=== PATIENT | male | born 1975 | race Caucasian/White ===

== ENCOUNTER 2016-10-30 10:08 | Observation (INO) | payer BC, OTHER ==
[2016-10-30] MEDS ORDERED: SODIUM CHLORIDE 0.9% 1,000 ML IV STA ×2 (10:10)
--- NOTE | 2016-10-30 10:17 | ED ---
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 Per bystanders she was noted to become jimenez and pale and almost passed out. This was in an EMS office. He is placed on a monitor immediately was found to be bradycardic with a rate in the 40s he did have occasional PACs. He denies chest pain fevers chills over chest pain. He was given 300 mL bolus of IV fluids and route and does feel improved at this time. This is never happened to him before he has no prior history of cardiac arrhythmia syncope he did eat breakfast this morning his blood glucose was adequate. It was 126 on Accu-Chek. He denied taking any medication. MD Complaint: almost passed out - Related Data Home Medications Medication Instructions Recorded Confirmed No Known Home Medications [No 03/03/15 10/30/16 Known Home Medications] Allergies Allergy/AdvReac Type Severity Reaction Status Date / Time dermabond Allergy Rash/Hives Uncoded 10/30/16 10:21 Review of Systems ROS Statement: Those systems with pertinent positive or pertinent negative responses have been documented in the HPI. ROS Other: All systems not noted in ROS Statement are negative. Past Medical History Additional Past Medical History / Comment(s): bowel obstruction,tinnitus, History of Any Multi-Drug Resistant Organisms: None Reported Past Surgical History: No Surgical Hx Reported Past Anesthesia/Blood Transfusion Reactions: No Reported Reaction Past Psychological History: No Psychological Hx Reported Smoking Status: Never smoker Past Alcohol Use History: None Reported Past Drug Use History: None Reported - Past Family History Father Family Medical History: Hypertension, Renal Disease Additional Family Medical History / Comment(s): a fib, cpa, General Exam - General Exam Comments Initial Comments: 's is a well-developed well-nourished awake alert oriented times x3 male General appearance: alert, in no apparent distress Head exam: Present: atraumatic, normocephalic, normal inspection Eye exam: Present: normal appearance, PERRL, EOMI. Absent: scleral icterus, conjunctival injection, periorbital swelling ENT exam: Present: normal exam, mucous membranes moist Neck exam: Present: normal inspection. Absent: tenderness, meningismus, lymphadenopathy Respiratory exam: Present: normal lung sounds bilaterally. Absent: respiratory distress, wheezes, rales, rhonchi, stridor Cardiovascular Exam: Present: regular rate, normal rhythm, normal heart sounds. Absent: systolic murmur, diastolic murmur, rubs, gallop, clicks GI/Abdominal exam: Present: soft, normal bowel sounds. Absent: distended, tenderness, guarding, rebound, rigid Extremities exam: Present: normal inspection, full ROM, normal capillary refill. Absent: tenderness, pedal edema, joint swelling, calf tenderness Back exam: Present: normal inspection Neurological exam: Present: alert, oriented X3, CN II-XII intact Psychiatric exam: Present: normal affect, normal mood Skin exam: Present: warm, dry, intact, normal color. Absent: rash Course Vital Signs 10/30/16 10/30/16 10:10 11:19 Temperature 97.1 F L Pulse Rate 80 82 Respiratory 18 18 Rate Blood Pressure 122/57 109/67 O2 Sat by Pulse 93 L 96 Oximetry - Reevaluation(s) Reevaluation #1: 10/30/16 10:28 The patient was noted on a monitor and frequent PVCs EKG Findings - EKG Results: EKG: interpreted by PRAVEEN BAINS, sinus rhythm, normal axis, normal QRS, normal ST/ T, no acute changes (EKG shows normal sinus rhythm a rate of 80 NJ interval 164 QRS duration 96 daily since QTC of 388/447 this is a normal-appearing EKG.) Medical Decision Making - Medical Decision Making Patient has remained asymptomatic he does however demonstrate frequent PVCs. I did discuss findings with him and with his attending physician patient will be admitted with cardiology consultation. - Lab Data Result diagrams: 10/30/16 10:18 10/30/16 10:18 Lab Results 10/30/16 10/30/16 10/30/16 Range/Units 10:18 10:18 10:18 WBC 7.0 (3.8-10.6) k/uL RBC 5.56 (4.30-5.90) m/uL Hgb 15.9 (13.0-17.5) gm/dL Hct 47.0 (39.0-53.0) % MCV 84.5 (80.0-100.0) fL MCH 28.6 (25.0-35.0) pg MCHC 33.9 (31.0-37.0) g/dL RDW 13.1 (11.5-15.5) % Plt Count 308 (150-450) k/uL Neutrophils % 68 % Lymphocytes % 19 % Monocytes % 8 % Eosinophils % 1 % Basophils % 0 % Neutrophils # 4.8 (1.3-7.7) k/uL Lymphocytes # 1.3 (1.0-4.8) k/uL Monocytes # 0.6 (0-1.0) k/uL Eosinophils # 0.1 (0-0.7) k/uL Basophils # 0.0 (0-0.2) k/uL PT (9.0-12.0) sec INR (<1.1) APTT (22.0-30.0) sec D-Dimer (<0.60) mg/L FEU Sodium 143 (137-145) mmol/L Potassium 3.8 (3.5-5.1) mmol/L Chloride 109 H (98-107) mmol/L Carbon Dioxide 24 (22-30) mmol/L Anion Gap 10 mmol/L BUN 13 (9-20) mg/dL Creatinine 0.90 (0.66-1.25) mg/dL Est GFR (MDRD) Af Amer >60 (>60 ml/min/1.73 sqM) Est GFR (MDRD) Non-Af >60 (>60 ml/min/1.73 sqM) Glucose 98 (74-99) mg/dL Calcium 9.1 (8.4-10.2) mg/dL Magnesium 2.3 (1.6-2.3) mg/dL Total Bilirubin 0.6 (0.2-1.3) mg/dL AST 28 (17-59) U/L ALT 48 (21-72) U/L Alkaline Phosphatase 70 (38-126) U/L Total Creatine Kinase 94 (55-170) U/L CK-MB (CK-2) 0.5 (0.0-2.4) ng/mL CK-MB (CK-2) Rel Index 0.5 Troponin I <0.012 (0.000-0.034) ng/mL Total Protein 7.3 (6.3-8.2) g/dL Albumin 3.9 (3.5-5.0) g/dL Amylase 64 (30-110) U/L Lipase 63 (23-300) U/L TSH 1.970 (0.465-4.680) mIU/L Urine Color Urine Appearance (Clear) Urine pH (5.0-8.0) Ur Specific [place] (1.001-1.035) Urine Protein (Negative) Urine Glucose (UA) (Negative) Urine Ketones (Negative) Urine Blood (Negative) Urine Nitrate (Negative) Urine Bilirubin (Negative) Urine Urobilinogen (<2.0) mg/dL Ur Leukocyte Esterase (Negative) 10/30/16 10/30/16 Range/Units 10:18 11:25 WBC (3.8-10.6) k/uL RBC (4.30-5.90) m/uL Hgb (13.0-17.5) gm/dL Hct (39.0-53.0) % MCV (80.0-100.0) fL MCH (25.0-35.0) pg MCHC (31.0-37.0) g/dL RDW (11.5-15.5) % Plt Count (150-450) k/uL Neutrophils % % Lymphocytes % % Monocytes % % Eosinophils % % Basophils % % Neutrophils # (1.3-7.7) k/uL Lymphocytes # (1.0-4.8) k/uL Monocytes # (0-1.0) k/uL Eosinophils # (0-0.7) k/uL Basophils # (0-0.2) k/uL PT 10.8 (9.0-12.0) sec INR 1.1 (<1.1) APTT 21.7 L (22.0-30.0) sec D-Dimer 0.22 (<0.60) mg/L FEU Sodium (137-145) mmol/L Potassium (3.5-5.1) mmol/L Chloride (98-107) mmol/L Carbon Dioxide (22-30) mmol/L Anion Gap mmol/L BUN (9-20) mg/dL Creatinine (0.66-1.25) mg/dL Est GFR (MDRD) Af Amer (>60 ml/min/1.73 sqM) Est GFR (MDRD) Non-Af (>60 ml/min/1.73 sqM) Glucose (74-99) mg/dL Calcium (8.4-10.2) mg/dL Magnesium (1.6-2.3) mg/dL Total Bilirubin (0.2-1.3) mg/dL AST (17-59) U/L ALT (21-72) U/L Alkaline Phosphatase (38-126) U/L Total Creatine Kinase (55-170) U/L CK-MB (CK-2) (0.0-2.4) ng/mL CK-MB (CK-2) Rel Index Troponin I (0.000-0.034) ng/mL Total Protein (6.3-8.2) g/dL Albumin (3.5-5.0) g/dL Amylase (30-110) U/L Lipase (23-300) U/L TSH (0.465-4.680) mIU/L Urine Color Yellow Urine Appearance Clear (Clear) Urine pH 7.0 (5.0-8.0) Ur Specific [place] 1.019 (1.001-1.035) Urine Protein Trace H (Negative) Urine Glucose (UA) Negative (Negative) Urine Ketones Negative (Negative) Urine Blood Negative (Negative) Urine Nitrate Negative (Negative) Urine Bilirubin Negative (Negative) Urine Urobilinogen <2.0 (<2.0) mg/dL Ur Leukocyte Esterase Negative (Negative) - Radiology Data Radiology results: report reviewed (Did review the x-ray report no acute findings.), image reviewed Disposition Clinical Impression: Near syncope, Premature ventricular contractions, Bradycardia Disposition: ADMITTED IP TO THIS HOSP Condition: Stable
[2016-10-30 10:37] LABS: Basophils % (A) 0 %; CH 29.4; CHCM 34.9; Eosinophils # (A) 0.1 k/uL (0-0.7); Eosinophils % (A) 1 %; HDW 2.78; HGB 15.9 gm/dL (13.0-17.5); Luc # (Auto) 0.23; Luc % (Auto) 3; Lymphocytes # (A) 1.3 k/uL (1.0-4.8); Lymphocytes % (A) 19 %; MCH 28.6 pg (25.0-35.0); MCHC 33.9 g/dL (31.0-37.0); MCV 84.5 fL (80.0-100.0); Mean Platelet Volume 6.7; Monocytes # (A) 0.6 k/uL (0-1.0); Monocytes % (A) 8 %; Neutrophils # (A) 4.8 k/uL (1.3-7.7); Neutrophils % (A) 68 %; RBC 5.56 m/uL (4.30-5.90); RDW 13.1 % (11.5-15.5); WBC (Perox) 7.71
[2016-10-30 10:42] LABS: ALT 48 U/L (21-72); AST 28 U/L (17-59); Alkaline Phosphatase 70 U/L (38-126); Amylase 64 U/L (30-110); Anion Gap 10 mmol/L; Blood Urea Nitrogen 13 mg/dL (9-20); Calcium 9.1 mg/dL (8.4-10.2); Carbon Dioxide 24 mmol/L (22-30); Chloride 109 mmol/L (98-107); Glucose 98 mg/dL (74-99); Magnesium 2.3 mg/dL (1.6-2.3); Non-African American GFR(MDRD) >60 (>60 ml/min/1.73 sqM); Potassium 3.8 mmol/L (3.5-5.1); Sodium 143 mmol/L (137-145); Total Bilirubin 0.6 mg/dL (0.2-1.3); Total Protein 7.3 g/dL (6.3-8.2)
[2016-10-30 10:51] LABS: INR 1.1 (<1.1); Prothrombin Time 10.8 sec (9.0-12.0)
[2016-10-30 10:58] LABS: Creatine Kinase 94 U/L (55-170)
[2016-10-30 11:10] LABS: Partial Thromboplastin Time 21.7 sec (22.0-30.0)
[2016-10-30 11:12] LABS: Creatine Kinase MB 0.5 ng/mL (0.0-2.4); Troponin I <0.012 ng/mL (0.000-0.034)
--- NOTE | 2016-10-30 11:24 | XR ---
EXAMINATION TYPE: XR chest 2V DATE OF EXAM: 10/30/2016 10:32 AM COMPARISON: 04/21/2013 INDICATION: Syncope TECHNIQUE: Frontal and lateral views of the chest are obtained. FINDINGS: The heart size is normal. The pulmonary vasculature is normal. The lungs are clear. IMPRESSION: 1. No acute pulmonary process.
[2016-10-30 11:56] LABS: Appearance,Urine Clear (Clear); Bilirubin,Urine Negative (Negative); Glucose,Urine (UA) Negative (Negative); Ketones,Urine Negative (Negative); Leukocyte Esterase,Urine Negative (Negative); Nitrite,Urine Negative (Negative); Protein,Urine Trace (Negative); Specific Gravity,Urine 1.019 (1.001-1.035); UA Billing (MACRO vs. MICRO) CHEM; Urobilinogen,Urine <2.0 mg/dL (<2.0)
[2016-10-30] MEDS ORDERED: SODIUM CHLORIDE 0.9% 1,000 ML IV ONE (12:28)
--- NOTE | 2016-10-30 18:28 | HP ---
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 He ( ) and almost passed out. 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 He was found to be bradycardic with heart rate in the 40s with PVCs multiple at which time he was given fluid bolus and possible dehydration. He was admitted to the floor for cardiac arrhythmia check and echocardiogram. Cardiology consult. Sugar was 125. Denied taking any medications. ALLERGIES: Negative. Meds are negative. REVIEW OF SYSTEMS: Negative except for HPI. Fourteen point review of systems negative. PAST MEDICAL HISTORY: Bowel obstruction, tinnitus. SOCIAL HISTORY: Nonsmoker. No alcohol. No illicit drugs. FAMILY HISTORY: Father with hypertension and renal disease. PHYSICAL EXAM: Currently his pulse is in the 70s, he has occasional PVC on the monitor. Blood pressure stabilized. Temperature is afebrile. PSYCHIATRIC: Fair mood and affect. NEUROLOGIC: Alert and oriented x3. CARDIOVASCULAR: S1, S2. LUNGS: Clear. GI: Soft. HEMATOLOGIC: Negative Homans. PSYCHIATRIC: Fair mood and affect Temp 97.1, respiratory rate 18 to 20, blood pressure 109 to 122 over 50's to 60s. O2 is 96% on room air. ASSESSMENT: 1. Near syncope. 2. Premature ventricular contraction. 3. Bradycardia. Echo is ordered for the morning, fluid will be replaced overnight. Check thyroid. Check other sources that can cause bradycardia. Please see further orders and cardiology consult.
--- NOTE | 2016-10-31 09:13 | PN ---
Skyler is a 41-year-old gentleman who is admitted to hospital yesterday with syncope. He has had a fairly uneventful course so far, has not had any episodes of syncope. No cardiac arrhythmia. Labs have been unremarkable. Troponins have been negative. Echo is pending at this time. Rhythm strip showed the rare PVCs. Physical exam today is benign and unremarkable. Blood pressures have been normal. ASSESSMENT: Syncope, etiology is unclear. I will do the echo this morning and if that is negative, will discharge him home and pursue his workup including a stress test and monitor as outpatient.
--- NOTE | 2016-10-31 09:37 | CONS ---
DATE OF CONSULTATION: 10/30/2016 CHIEF COMPLAINT: Syncope. 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 His heart rate was bradycardic. Heart rate was in the 40s. He has had multiple PVCs, came to the hospital and subsequently became symptom-free. His initial EKG did not reveal ischemic changes and the first set of troponin was negative. Hemoglobin was normal at 15.9. Potassium is 3.8. Past medical history is negative for hypertension, diabetes, dyslipidemia. MEDICATIONS: None. ALLERGIES: None. FAMILY HISTORY: Negative for premature coronary artery disease. SOCIAL HISTORY: Negative for current smoking, ETOH abuse or drug abuse. REVIEW OF SYSTEMS: HEENT: Unremarkable. CARDIAC: As described above. RESPIRATORY: Negative. GI: Negative. GENITOURINARY: Negative. SKIN: negative. ENDOCRINE: Negative. MUSCULOSKELETAL: Negative. CONSTITUTIONAL: Negative. Oncological: Negative. On exam, comfortable at rest. Vital signs are stable. There is no jugular venous distention. Carotid upstroke is normal. There is no bruit. Chest exam reveals good air entry bilaterally. Heart exam reveals first and second heart sounds. No gallop. No murmur, no rub. ABDOMEN: Soft, nontender. Exam of extremities did not reveal edema. SCIENCE TECHNICIAN exam did not reveal focal neurological deficits. ASSESSMENT: Syncope, rule out cardiac causes. PLAN: Patient's syncope could be vasovagal in origin. I am going to obtain serial CPKs, troponins, watch him on telemetry and if there is no cardiac arrhythmia, enzymes are negative and echo looks normal, he can be discharged home and work-up can be pursued as outpatient.
--- NOTE | 2016-10-31 11:46 | ECHOF ---
Referral Reason:SYNCOPE MEASUREMENTS -------- HEIGHT: 190.5 cm WEIGHT: 115.7 kg BP: 121/73 IVSd: 1.2 cm (0.6 - 1.1) LVIDd: 4.1 cm (3.9 - 5.3) LVPWd: 1.2 cm (0.6 - 1.1) LVIDs: 2.8 cm LA Diam: 3.3 cm (2.7 - 3.8) RVIDd: 3.0 cm (< 3.3) LAESV Index (A-L): 31.10 ml/m Ao Diam: 3.5 cm (2.0 - 3.7) AV Cusp: 2.8 cm (1.5 - 2.6) EPSS: 0.5 cm MV E Jorden: 0.90 m/s MV DecT: 152 ms MV A Jorden: 0.66 m/s MV E/A Ratio: 1.37 MV EF SLOPE: 96.97 mm/s (70 - 150) MV EXCURSION: 20.17 mm (> 18.000) FINDINGS -------- Sinus rhythm. This was a technically good study. The left ventricular size is normal. There is borderline concentric left ventricular hypertrophy. Overall left ventricular systolic function is normal with, an EF between 60 - 65 %. The right ventricle is normal in size. LA is midly dilated 29-33ml/m2. The right atrium is normal in size. The aortic valve is trileaflet and appears structurally normal. The tricuspid valve appears structurally normal. No regurgitation noted Trace/mild (physiologic) pulmonic regurgitation. The aortic root size is normal. There is no pericardial effusion. CONCLUSIONS -------- 1. Sinus rhythm. 2. The tricuspid valve appears structurally normal. 3. Trace/mild (physiologic) pulmonic regurgitation. 4. The aortic root size is normal. 5. There is no pericardial effusion. 6. This was a technically good study. 7. The left ventricular size is normal. 8. There is borderline concentric left ventricular hypertrophy. 9. Overall left ventricular systolic function is normal with, an EF between 60 - 65 %. 10. The right ventricle is normal in size. 11. LA is midly dilated 29-33ml/m2. 12. The right atrium is normal in size. 13. The aortic valve is trileaflet and appears structurally normal. ASSURANCE SENIOR MANAGER INSURANCE: Kaley Alvares RDCS
[2016-10-31 12:21] VITALS: BP 136/69; PULSE 69; RESP 18; TEMP 98.4
--- NOTE | 2016-10-31 22:17 | DS ---
DATE OF ADMISSION: 10/30/2016 DATE OF DISCHARGE: 10/31/2016 DISCHARGE DIAGNOSIS(ES): 1. Bradycardia. 2. Near-syncope. 3. Premature ventricular contractions. MEDICATIONS: None. CONDITION: Stable. PROGNOSIS: Stable. 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 He was brought here due to near syncope and multiple PVCs on the monitor. He was seen by cardiology, ordered an echo which showed good ejection fraction. No significant abnormalities for which cardiology cleared him for discharge. All electrolytes including thyroid levels were normal. He will follow-up in the office in next 1 to 2 days. To increase fluid intake of liquids.
== END 2016-10-31 14:50 | disposition home or self-care (01) ==
LOC: EC 10:08 → INTOOBSV 12:31 → 3OBS 12:31
PROVIDERS: ADMIT Family Medicine; ATTEND Family Medicine
DX: R55 Syncope and collapse (principal); I49.3 Ventricular premature depolarization; Z91.048 Other nonmedicinal substance allergy status; R00.1 Bradycardia, unspecified
CPT/HCPCS: 96360; 96361 ×2; 99285; 36415; 93005; 93306; 85379; 80053; 84443; 82150; 82550; 82553; 83690; 83735; 84484; 85025; 85610; 85730; 81003; 71020; G0378 ×2

== ENCOUNTER 2020-04-11 16:15 | Emergency (ER) | payer BC, OTHER ==
[2020-04-11] MEDS ORDERED: DIPH,PERTUS(ACELL)TETVAC-LF 0.5 ML VIAL IM ONE (16:22)
[2020-04-11 16:43] VITALS: TEMP 98.7
--- NOTE | 2020-04-11 16:46 | XR ---
EXAMINATION TYPE: XR hand complete RT DATE OF EXAM: 04/11/2020 CLINICAL HISTORY: Pain after second digit injury. TECHNIQUE: Frontal, lateral and oblique images of the right hand are obtained. COMPARISON: None. FINDINGS: There is acute distracted fracture distal aspect second distal phalanx. The joint spaces i n the right hand appear within normal limits. The overlying soft tissue appears unremarkable. IMPRESSION: There is acute slightly distracted curvilinear fracture distal aspect second distal phal anx. (Initial encounter closed type posttraumatic fracture)
[2020-04-11] MEDS ORDERED: LIDOCAINE 1% INJ 10MG/ML (20 ML MDV) SQ ONE (17:25)
--- NOTE | 2020-04-11 17:28 | ED ---
Upper Extremity HPI <Dedrick Barajas P - Last Filed: 04/11/20 17:59> - General Source: patient Mode of arrival: ambulatory Limitations: no limitations - History of Present Illness MD Complaint: Injury to:: right, hand, finger <Odin Guerrero - Last Filed: 04/11/20 18:05> - General Chief Complaint: Extremity Injury, Upper Stated Complaint: extremity injury. [facility] Time Seen by Provider: 04/11/20 16:22 - History of Present Illness Initial Comments: This a 44-year-old male with a complaint of right index finger injury when he was bringing a patient and. 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 He complains of pain and bleeding to the tip of the finger. No other injury reported. He initially did feel somewhat lightheaded and nauseated this did quickly passed. No other complaints no other modifying factors he is not sure when his last tetanus shot was. (Odin Guerrero) - Related Data Previous Rx's Medication Instructions Recorded Amoxic-Pot Clav 875-125Mg 1 tab PO Q12HR 7 Days #14 tab 04/11/20 [Augmentin 875-125] Allergies Allergy/AdvReac Type Severity Reaction Status Date / Time dermabond AdvReac Rash/Hives Uncoded 04/11/20 17:37 Review of Systems ROS Other: All systems not noted in ROS Statement are negative. <Dedrick Barajas P - Last Filed: 04/11/20 17:59> ROS Other: All systems not noted in ROS Statement are negative. <Odin Guerrero - Last Filed: 04/11/20 18:05> ROS Statement: Those systems with pertinent positive or pertinent negative responses have been documented in the HPI. 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 Past Anesthesia/Blood Transfusion Reactions: No Reported Reaction Past Psychological History: No Psychological Hx Reported Smoking Status: Never smoker Past Alcohol Use History: None Reported Past Drug Use History: None Reported - Past Family History Mother Family Medical History: Diabetes Mellitus, Hypertension Additional Family Medical History / Comment(s): Heart disease. Father Family Medical History: AFIB, CVA/TIA, Hypertension, Renal Disease Additional Family Medical History / Comment(s): cva, pacemaker, cardiac valve replacements. <Odin Guerrero - Last Filed: 04/11/20 18:05> General Exam Limitations: no limitations General appearance: alert, anxious Head exam: Present: atraumatic, normocephalic, normal inspection Eye exam: Present: normal appearance, PERRL, EOMI. Absent: scleral icterus, conjunctival injection, periorbital swelling ENT exam: Present: normal exam, mucous membranes moist Neck exam: Present: normal inspection. Absent: tenderness, meningismus, lymphadenopathy Respiratory exam: Present: normal lung sounds bilaterally. Absent: respiratory distress, wheezes, rales, rhonchi, stridor Cardiovascular Exam: Present: regular rate, normal rhythm, normal heart sounds. Absent: systolic murmur, diastolic murmur, rubs, gallop, clicks Extremities exam: Present: full ROM, tenderness, other (Evidence of laceration across the lateral and volar aspect of the index finger past the 2 cm. Evidence of some subungual hematoma. I did send the nail bed does appear to be intact however. Capillary refills less than 2 seconds no sensory motor or vascular deficits) Back exam: Present: full ROM Neurological exam: Present: alert, oriented X3, CN II-XII intact Psychiatric exam: Present: normal affect, normal mood Skin exam: Present: warm, dry. Absent: intact <Odin Guerrero - Last Filed: 04/11/20 18:05> - General Exam Comments Initial Comments: This is a well-developed well-nourished awake alert oriented times 3 male (Odin Guerrero) Course Vital Signs 04/11/20 16:27 Temperature 98.7 F Pulse Rate 42 L Respiratory 18 Rate Blood Pressure 117/91 O2 Sat by Pulse 99 Oximetry Procedures - Laceration Laceration #1 Consent Obtained: verbal consent Indication: laceration Site: hand Size (cm): 3 Description: irregular Anesthetic Used: lidocaine 1% Anesthesia Technique: nerve block Amount (mls): 4 Pre-repair: wound explored, irrigated extensively (with saline and idoine) Type of Sutures: nylon Size of Sutures: 5-0 Number of Sutures: 5 Technique: simple, interrupted Patient Tolerated Procedure: well, no complications <Dedrick Barajas - Last Filed: 04/11/20 17:59> Medical Decision Making - Radiology Data Radiology results: report reviewed (I did review the imaging and report evidence of a distal tuft fracture oh right index finger.), image reviewed <Odin Guerrero - Last Filed: 04/11/20 18:05> - Medical Decision Making I did discuss findings with patient and his finger laceration was repaired by my physician boiler assistant operator. Patient be discharged be placed on antibiotics. He is suggested take Tylenol or Motrin for pain he is not requesting any medications at this time. Will follow-up. (Odin Guerrero) Disposition <Dedrick Barajas - Last Filed: 04/11/20 17:59> Is patient prescribed a controlled substance at d/c from ED?: No <Odin Guerrero - Last Filed: 04/11/20 18:05> Clinical Impression: Fracture of phalanx of right index finger Disposition: HOME SELF-CARE Condition: Good Instructions (If sedation given, give patient instructions): Finger Fracture (ED) Additional Instructions: Ice elevation, Motrin or Tylenol for pain Prescriptions: Amoxic-Pot Clav 875-125Mg [Augmentin 875-125] 1 tab PO Q12HR 7 Days #14 tab Referrals: Anoop Harp MD [Primary Care Provider] - 1-2 days
[2020-04-11] MEDS ORDERED: AMOXIC-POT CLAV 875MG STARTER PACK 2 TAB BTL PO STA (18:02)
[2020-04-11 18:20] VITALS: BP 128/74; PULSE 68; RESP 16
== END 2020-04-11 18:16 | disposition home or self-care (01) ==
LOC: EC 16:15
DX: S62.630B Displaced fracture of distal phalanx of right index finger, initial encounter for open fracture (principal); Z23 Encounter for immunization; Z91.048 Other nonmedicinal substance allergy status; W26.9XXA Contact with unspecified sharp object(s), initial encounter; Y92.69 Other specified industrial and construction area as the place of occurrence of the external cause; Y99.0 Civilian activity done for income or pay
CPT/HCPCS: 73130; 90715; 99283; 12001; 90471; J2001

== ENCOUNTER → 2020-08-11 | Outpatient (CLI) | payer BC | END | disposition home or self-care (01) | LOC: LABMAIN 09:21 | PROVIDERS: ATTEND Emergency Medicine | DX: Z20.828 Contact with and (suspected) exposure to other viral communicable diseases (principal) | CPT/HCPCS: 87635 ==

== ENCOUNTER 2021-12-03 16:11 | Emergency (ER) | payer BC, OTHER ==
[2021-12-03 16:24] VITALS: BP 127/66; PULSE 97; RESP 18; TEMP 98.2
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
== END 2021-12-03 17:18 | disposition home or self-care (01) ==
LOC: EC 16:11
DX: Z04.1 Encounter for examination and observation following transport accident (principal)
CPT/HCPCS: 99284

== ENCOUNTER 2022-02-07 18:40 | Emergency (ER) | payer BC ==
[2022-02-07 18:56] VITALS: BP 138/82; PULSE 69; RESP 18; TEMP 98.4
--- NOTE | 2022-02-07 19:24 | XR ---
EXAMINATION TYPE: XR chest 2V DATE OF EXAM: 02/07/2022 COMPARISON: 10/30/2016 HISTORY: Cough TECHNIQUE: Frontal and lateral views of the chest are obtained. FINDINGS: There is no focal air space opacity, pleural effusion, or pneumothorax seen. The cardiac silhouette size is within normal limits. The osseous structures are intact. IMPRESSION: No acute cardiopulmonary process.
[2022-02-07] MEDS ORDERED: predniSONE 20 MG TAB PO STA (20:12)
[2022-02-07] MEDS ORDERED: AMOXIC-POT CLAV 875-125MG 1 EACH TAB PO STA (20:19)
--- NOTE | 2022-02-07 20:24 | ED ---
URI HPI - General Chief Complaint: Upper Respiratory Infection Stated Complaint: sinus/head infection/vision issues Time Seen by Provider: 02/07/22 18:55 Source: patient Mode of arrival: ambulatory Limitations: no limitations - History of Present Illness Initial Comments: 46-year-old male presents emergency Department with reported cough, congestion, low-grade fevers and eye discharge that started on Wednesday. He was started on azithromycin and has not had any improvement in his symptoms. Denies chest pain or shortness of breath. Has been taking DayQuil for symptoms without improvement. Admits to some visual disturbance due to increased tearing. No eye pain. Mild sore throat. No sick contacts similar symptoms. No other alleviating, precipitating or modifying factors - Related Data Previous Rx's Medication Instructions Recorded Amoxic-Pot Clav 875-125Mg 1 tab PO Q12HR 7 Days #14 tab 04/11/20 [Augmentin 875-125] Albuterol Inhaler [Ventolin Hfa 2 puff INHALATION RT-QID #8 gm 02/07/22 Inhaler] Amoxicillin/Potassium Clav 1 tab PO Q12HR #20 tab 02/07/22 [Augmentin 875-125 Tablet] Ofloxacin 0.3% Ophth Soln [Ocuflox 1 - 2 drops BOTH EYES QID #10 ml 02/07/22 Ophth Soln] predniSONE [Deltasone] 20 mg PO BID #10 tab 02/07/22 Allergies Allergy/AdvReac Type Severity Reaction Status Date / Time dermabond AdvReac Rash/Hives Uncoded 04/11/20 17:37 Review of Systems ROS Statement: Those systems with pertinent positive or pertinent negative responses have been documented in the HPI. ROS Other: All systems not noted in ROS Statement are negative. 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 Past Anesthesia/Blood Transfusion Reactions: No Reported Reaction Past Psychological History: No Psychological Hx Reported Smoking Status: Never smoker Past Alcohol Use History: None Reported Past Drug Use History: None Reported - Past Family History Mother Family Medical History: Diabetes Mellitus, Hypertension Additional Family Medical History / Comment(s): Heart disease. Father Family Medical History: AFIB, CVA/TIA, Hypertension, Renal Disease Additional Family Medical History / Comment(s): cva, pacemaker, cardiac valve replacements. General Exam Limitations: no limitations General appearance: alert, in no apparent distress Head exam: Present: atraumatic, normocephalic, normal inspection Eye exam: Present: PERRL, EOMI, conjunctival injection, other (copious bilateral eye conjunctivitis). Absent: scleral icterus, periorbital swelling ENT exam: Present: mucous membranes moist, other (left tm is read and injected) Neck exam: Present: normal inspection. Absent: tenderness, meningismus, lymphadenopathy Respiratory exam: Present: normal lung sounds bilaterally. Absent: respiratory distress, wheezes, rales, rhonchi, stridor Cardiovascular Exam: Present: regular rate, normal rhythm, normal heart sounds. Absent: systolic murmur, diastolic murmur, rubs, gallop, clicks GI/Abdominal exam: Present: soft, normal bowel sounds. Absent: distended, tenderness, guarding, rebound, rigid Extremities exam: Present: normal inspection, full ROM, normal capillary refill. Absent: tenderness, pedal edema, joint swelling, calf tenderness Back exam: Present: normal inspection Neurological exam: Present: alert, oriented X3, CN II-XII intact Psychiatric exam: Present: normal affect, normal mood Skin exam: Present: warm, dry, intact, normal color. Absent: rash Course Vital Signs 02/07/22 18:52 Temperature 98.4 F Pulse Rate 69 Respiratory 18 Rate Blood Pressure 138/82 O2 Sat by Pulse 100 Oximetry Medical Decision Making - Medical Decision Making Upon arrival patient is placed in a 31. A thorough history and physical exam was performed. Patient is soft for cold and influenza which are negative. Chest x-ray clear of any acute intrathoracic process. Clinical exam demonstrates conjunctivitis otitis syndrome. Patient will be treated with Augmentin, proair inhaler, prednisone and ofloxicin eye drops. Started up with his primary care doctor to 4 days and return for any worsening symptoms. Patient was discharged home in stable condition - Lab Data Lab Results 02/07/22 02/07/22 Range/Units 18:58 18:58 Coronavirus (PCR) Not Detected (Not Detectd) Influenza Type A RNA Not Detected (Not Detectd) Influenza Type B (PCR) Not Detected (Not Detectd) Disposition Clinical Impression: Otitis media, Bilateral conjunctivitis, Cough Disposition: HOME SELF-CARE Condition: Stable Instructions (If sedation given, give patient instructions): Ear Infection (ED), Conjunctivitis (ED) Additional Instructions: Stop taking the azithromycin. Take antibiotics as directed and follow up with primary care doctor in 2-4 days. Prescriptions: Amoxicillin/Potassium Clav [Augmentin 875-125 Tablet] 1 tab PO Q12HR #20 tab predniSONE [Deltasone] 20 mg PO BID #10 tab Ofloxacin 0.3% Ophth Soln [Ocuflox Ophth Soln] 1 - 2 drops BOTH EYES QID #10 ml Albuterol Inhaler [Ventolin Hfa Inhaler] 2 puff INHALATION RT-QID #8 gm Is patient prescribed a controlled substance at d/c from ED?: No Referrals: Anoop Harp MD [Primary Care Provider] - 1-2 days Time of Disposition: 20:24
== END 2022-02-07 21:16 | disposition home or self-care (01) ==
LOC: EC 18:40
DX: H10.9 Unspecified conjunctivitis (principal); H66.93 Otitis media, unspecified, bilateral; R05.9 Cough, unspecified; R09.81 Nasal congestion; Z20.822 Contact with and (suspected) exposure to COVID-19; Z91.09 Other allergy status, other than to drugs and biological substances
CPT/HCPCS: 87502; 87635; 71046; 99283; J7512